=== PATIENT | male | born 1980 | race Two or more races ===

== ENCOUNTER 2024-02-12 14:37 | Emergency (ER) | payer OTHER ==
[~2024-02-12] VITALS: Ht 170.2 cm; Wt 72.6 kg
[2024-02-12 16:10] VITALS: BP 113/58; O2SAT 98
== END 2024-02-12 16:11 | disposition home or self-care (01) ==
LOC: ER 14:39
DX: H11.32 Conjunctival hemorrhage, left eye (principal)
CPT/HCPCS: A4606; A4663